=== PATIENT | male | born 1975 | race African-American/Black ===

== ENCOUNTER 2022-09-20 07:56 | Outpatient (CLI) | payer BC ==
[2022-09-20 09:09] LABS: Hemoglobin 14.6 g/dL (14.0-18.0); Mean Corpuscular HGB CONC 32.6 g/dL (32.0-36.0); Mean Corpuscular Hemoglobin 30.4 pg (27.0-31.0); Mean Corpuscular Volume 93.2 fl (78.0-98.0); Mean Platelet Volume 7.4 fL (7.4-10.4); Platelet Count 238 10x3/uL (130-400); RBC Distribution Width 12.1 % (11.5-14.5); Red Blood Cell (RBC) Count 4.82 mill/uL (4.70-6.10); White Blood Cell (WBC) Count 6.6 10x3/uL (4.8-10.8)
[2022-09-20 09:10] LABS: ALT (SGPT) 17 U/L (8-55); AST (SGOT) 20 U/L (5-34); Albumin 4.5 g/dL (3.5-5.0); Alkaline Phosphatase 114 U/L (40-110); Anion Gap 11 mmol/L (10-20); BUN (Urea Nitrogen) 13 mg/dL (8.9-20.6); Bilirubin, Total 0.3 mg/dL (0.2-1.2); CRP (Inflammatory) 1.03 mg/dL (= or < 0.5); Calc. Creatinine Clearance 0 mL/min (70-130); Calcium 9.1 mg/dL (7.8-10.44); Carbon Dioxide 28 mmol/L (22-29); Chloride 103 mmol/L (98-107); Estimated GFR 84; Globulin 2.9 g/dL (2.4-3.5); Glucose 99 mg/dL (70-105); Potassium 3.6 mmol/L (3.5-5.1); Protein, Total 7.4 g/dL (6.0-8.3); Sodium 138 mmol/L (136-145)
[2022-09-20 09:43] LABS: Band 1 % (5-11); Eosinophils 2 % (0-10); Lymphocytes 55 % (21-51); MDiff Complete? YES; Monocytes 6 % (0-10); Neutrophil 35 % (42-75); RBC Morphology Normal; Reactive Lymphocytes 1 % (0-10)
[2022-09-20] MEDS ORDERED: Iopamidol 370 76% 100 ML VIAL ONE (10:48)
== END 2022-09-20 07:57 | disposition home or self-care (01) ==
LOC: CT 07:56
PROVIDERS: ATTEND Internal Medicine Gastroenterology
DX: K91.89 Other postprocedural complications and disorders of digestive system (principal); K52.9 Noninfective gastroenteritis and colitis, unspecified; K50.00 Crohn's disease of small intestine without complications
CPT/HCPCS: 74178; 80053; 85025; 85652; 86140; Q9967